=== PATIENT | female | born 1985 | race Two or more races ===

== ENCOUNTER 2017-10-06 06:25 | Day surgery (SDC) | payer OTHER ==
[2017-10-06] MEDS ORDERED: CEFAZOLIN 2 GM/50 ML (PMX) 50 ML IVPB (10:00)
[2017-10-06] MEDS: SOD CHLORIDE 0.9% 1,000 ML IV (10:44)
[2017-10-06 10:55] LABS: ADD MAN DIFF? NO
[2017-10-06 10:56] LABS: BASOPHILS % 0.4 % (0.0-2.0); EOSINOPHILS # 0.1 10^3/ul (0.0-0.5); EOSINOPHILS % 1.3 % (0.0-7.0); HEMATOCRIT 36.6 % (37.0-47.0); HEMOGLOBIN 11.7 g/dl (12.0-16.0); LYMPHOCYTES # 1.7 10^3/ul (0.8-2.9); LYMPHOCYTES % 24.2 % (15.0-51.0); MEAN CORPUSCULAR HEMOGLOBIN 25.6 pg (29.0-33.0); MEAN CORPUSCULAR VOLUME 80.1 fl (82.0-101.0); MEAN PLATELET VOLUME 9.1 fl (7.4-10.4); MONOCYTE # 0.6 10^3/ul (0.3-0.9); MONOCYTES % 8.2 % (0.0-11.0); NEUTROPHIL # 4.6 10^3/ul (1.6-7.5); NEUTROPHILS % 65.6 % (39.0-77.0); PLATELET COUNT 349 10^3/UL (140-415); RED BLOOD COUNT 4.57 10^6/ul (4.20-5.40)
[2017-10-06] MEDS ORDERED: FENTAnyl 50 MCG/ML VIAL (11:01)
[2017-10-06] MEDS ORDERED: CEFAZOLIN 1 GM INJ (11:01)
[2017-10-06] MEDS ORDERED: PROPOFOL 20 ML (11:01)
[2017-10-06] MEDS ORDERED: MIDAZOLAM 1 MG/ML 2 ML INJ (11:01)
[2017-10-06 11:14] LABS: ANION GAP 12 (8-16); BLOOD UREA NITROGEN 7 mg/dl (7-20); CALCIUM 9.1 mg/dl (8.4-10.2); CARBON DIOXIDE 24 mmol/L (21-31); CHLORIDE 108 mmol/L (97-110); CREATININE 0.54 mg/dl (0.44-1.00); GLUCOSE 92 mg/dl (70-220); POTASSIUM 4.2 mmol/L (3.5-5.1); SODIUM 140 mmol/L (135-144)
[2017-10-06] MEDS ORDERED: OXYCODONE/ACETAMINOPHEN (5/325) TAB PO ×2 (11:30)
[2017-10-06] MEDS ORDERED: LABETALOL HCL 20MG INJ IV (11:30)
[2017-10-06] MEDS ORDERED: HYDROmorphONE 1 MG/5 ML IV SYRINGE IV ×2 (11:30)
[2017-10-06] MEDS ORDERED: METOCLOPRAMIDE 10 MG INJ IV (11:30)
[2017-10-06] MEDS ORDERED: EPHEDrine SULFATE 50 MG/5 ML SYG IV (11:30)
[2017-10-06] MEDS ORDERED: ONDANSETRON 4 MG INJ IV (11:30)
[2017-10-06] MEDS ORDERED: FENTAnyl 50 MCG/ML VIAL IV ×3 (11:30)
[2017-10-06] MEDS ORDERED: ONDANSETRON 4 MG INJ (12:16)
[2017-10-06] MEDS ORDERED: DEXAMETHASONE 4 MG/ML 1 ML INJ (12:16)
[2017-10-06] MEDS ORDERED: EPHEDrine 25 MG/5 ML SYG (12:16)
[2017-10-06] MEDS ORDERED: METOCLOPRAMIDE 10 MG INJ (12:16)
[2017-10-06] MEDS ORDERED: KETOROLAC 30 MG INJ (12:17)
[2017-10-06] MEDS: BUPIVACAINE 0.25% (MPF) 30 ML INJ (12:33)
[2017-10-06] MEDS ORDERED: HYDROCODONE/APAP (5/325) TAB PO (13:00)
[2017-10-06] MEDS: HYDROmorphONE 1 MG/5 ML IV SYRINGE IV (13:13)
== END 2017-10-06 14:45 | disposition home or self-care (01) ==
LOC: SDS 06:25
DX: N60.11 Diffuse cystic mastopathy of right breast (principal); N60.41 Mammary duct ectasia of right breast
CPT/HCPCS: 14001; 80048; 85025; 88307